=== PATIENT | male | born 1970 | race Caucasian/White ===

== ENCOUNTER 2019-02-12 08:11 | Day surgery (SDC) | payer BC ==
[~2019-02-12] VITALS: Ht 177.8 cm; Wt 95.6 kg
[2019-02-12] MEDS ORDERED: normal saline 1000ml 1,000 ML IV SCH (08:45)
[2019-02-12 09:18] VITALS: BP 130/90
[2019-02-12] MEDS ORDERED: diatrozoate meglu/diatrozoate sod (37% iodine) 120ML oral solution PO ONE (09:30)
[2019-02-12 09:32] LABS: BASOPHILS # (AUTO) 0.1 X10'3 (0-0.2); BASOPHILS % (AUTO) 0.7 % (0-1); EOSINOPHILS # (AUTO) 0.1 X10'3 (0-0.9); EOSINOPHILS % (AUTO) 1.2 % (0-6); HEMATOCRIT 42.1 % (42.0-52.0); HEMOGLOBIN 13.8 g/dl (14.0-17.9); LYMPHOCYTES # (AUTO) 2.5 X10'3 (1.1-4.8); LYMPHOCYTES % (AUTO) 21.9 % (21-51); MEAN CORPUSCULAR HEMOGLOBIN 28.5 PG (27.0-31.0); MEAN CORPUSCULAR HGB CONC 32.7 g/dL (33.0-36.5); MEAN CORPUSCULAR VOLUME 87.2 FL (78-98); MEAN PLATELET VOLUME 8.6 FL (7.4-10.4); MONOCYTES # (AUTO) 0.9 X10'3 (0-0.9); MONOCYTES % (AUTO) 8.3 % (2-12); NEUTROPHILS # (AUTO) 7.6 X10'3 (1.8-7.7); NEUTROPHILS % (AUTO) 67.9 % (42-75); PLATELET COUNT 284 X10'3 (140-440); RED BLOOD COUNT 4.83 X10'6 (4.70-6.10); RED CELL DISTRIBUTION WIDTH 14.4 % (11.5-14.5); WHITE BLOOD COUNT 11.2 X10'3 (4.5-11.0)
[2019-02-12 09:41] LABS: ALBUMIN 3.2 G/DL (3.4-5.0); ANION GAP 9 (8-16); BLOOD UREA NITROGEN 13 MG/DL (7-18); BUN/CREATININE RATIO 15.1 (5.4-32.0); CALCIUM 8.1 MG/DL (8.5-10.1); CHLORIDE 105 MMOL/L (99-107); CREATININE 0.86 MG/DL (0.60-1.10); GLUCOSE 88 MG/DL (70-104); POTASSIUM 3.8 MMOL/L (3.5-5.1); SODIUM 139 MMOL/L (135-145); TOTAL CARBON DIOXIDE 25.4 MMOL/L (24-32); eGFR > 90 ML/MIN
[2019-02-12] MEDS: diatr meglu/diatrizoate 30ml oral sol.-(3 dose) bottle PO SCH ×3 (09:41→11:27)
[2019-02-12] MEDS ORDERED: LISI1TAB11 PO (09:51)
--- NOTE | 2019-02-12 13:35 | NUR ---
PATIENT TAKEN TO CT BY CHRISTIAN BYERS RN
[2019-02-12] MEDS ORDERED: midazolam 2 mg/2 ml injection ONE (13:40)
[2019-02-12] MEDS ORDERED: fentaNYL/PF 50MCG/1 ML 2ML syringe ONE (13:40)
[2019-02-12 13:43] VITALS: BP 152/89
--- NOTE | 2019-02-12 14:35 | NUR ---
PT RETURNED FROM CT, NO ABSCESS. PROCEDURE CANCELLED. PT DID NOT RECEIVE ANY ANESTHESIA. ORDER TO DC NOW. PT AMBULATED TO HOSPITAL ENTRANCE AND WAS DISCHARGED HOME. PT HAD ALL BELONGINGS.
== END 2019-02-12 14:35 | disposition home or self-care (01) ==
LOC: SSTAY O 08:11
PROVIDERS: ATTEND Radiology Diagnostic Radiology
DX: K63.89 Other specified diseases of intestine (principal); Z53.8 Procedure and treatment not carried out for other reasons; K57.30 Diverticulosis of large intestine without perforation or abscess without bleeding; I10 Essential (primary) hypertension; Z96.651 Presence of right artificial knee joint
CPT/HCPCS: 36415; 74176; 80048; 85025; 85610; J2250; J3010; Q9963; J7030